=== PATIENT | female | born 1995 | race African-American/Black ===

== ENCOUNTER 2023-01-05 09:06 | Observation (INO) | payer MEDICAID, MEDICARE ==
[~2023-01-05] VITALS: Ht 157.5 cm; Wt 69.9 kg
== END 2023-01-05 11:10 | disposition home or self-care (01) ==
LOC: 8 EST LDRP 09:06
PROVIDERS: ADMIT Obstetrics & Gynecology; ATTEND Obstetrics & Gynecology
DX: O26.893 Other specified pregnancy related conditions, third trimester (principal); R10.30 Lower abdominal pain, unspecified; R10.2 Pelvic and perineal pain; R26.2 Difficulty in walking, not elsewhere classified; O62.9 Abnormality of forces of labor, unspecified; Z3A.39 39 weeks gestation of pregnancy
CPT/HCPCS: 59025; 76805; 76818; G0378; 99281